=== PATIENT | male | born 1960 | race Caucasian/White ===

== ENCOUNTER 2018-02-11 05:23 | Inpatient (IN) | payer OTHER ==
[2018-02-10 12:17] LABS: ADD MAN DIFF? NO
[2018-02-10 12:18] LABS: WHITE BLOOD COUNT 8.2 10^3/ul (4.8-10.8)
[2018-02-10 12:18] LABS: BASOPHILS % 0.5 % (0.0-2.0); EOSINOPHILS # 0.2 10^3/ul (0.0-0.5); EOSINOPHILS % 2.2 % (0.0-7.0); HEMATOCRIT 43.4 % (42.0-52.0); HEMOGLOBIN 15.2 g/dl (14.0-18.0); LYMPHOCYTES # 2.1 10^3/ul (0.8-2.9); MEAN CORPUSCULAR HEMOGLOBIN 30.5 pg (29.0-33.0); MEAN PLATELET VOLUME 10.7 fl (7.4-10.4); MONOCYTE # 0.5 10^3/ul (0.3-0.9); MONOCYTES % 5.9 % (0.0-11.0); NEUTROPHIL # 5.4 10^3/ul (1.6-7.5); PLATELET COUNT 266 10^3/UL (140-415); RED BLOOD COUNT 4.99 10^6/ul (4.70-6.10); RED CELL DISTRIBUTION WIDTH 13.1 % (11.5-14.5)
[2018-02-10 12:35] LABS: ANION GAP 10 (5-13); BLOOD UREA NITROGEN 11 mg/dl (7-20); CALCIUM 9.1 mg/dl (8.4-10.2); CARBON DIOXIDE 26 mmol/L (21-31); CHLORIDE 103 mmol/L (97-110); CREATININE 0.52 mg/dl (0.61-1.24); Estimated GFR > 60 mL/min (>60); GLUCOSE 217 mg/dl (70-220); POTASSIUM 4.4 mmol/L (3.5-5.1); SODIUM 139 mmol/L (135-144)
[2018-02-10 12:38] LABS: INR 1.05; PARTIAL THROMBOPLASTIN TIME 28.1 Sec (23.0-35.0); PROTIME 13.8 Sec (11.9-14.9); PT RATIO 1.1
[2018-02-11] MEDS ORDERED: EPINEPHrine 4 MG in DEXTROSE 5% 246 ML IV (06:00)
[2018-02-11] MEDS ORDERED: INSULIN HUMAN REGULAR 100 UNIT in SOD CHLORIDE 0.9% 99 ML IV (06:00)
[2018-02-11] MEDS ORDERED: PHENYLephrine 20MG IN 250 ML 250 ML IV (06:00)
[2018-02-11] MEDS ORDERED: INSULIN REGULAR, HUMAN 100 UNIT/1 ML 3ML VIAL (07:00)
[2018-02-11] MEDS ORDERED: DOPamine-D5W 1.6 MG/ML 250 ML (07:00)
[2018-02-11] MEDS ORDERED: NITROGLYCERIN 50 MG/D5W 250 ML BTL (07:00)
[2018-02-11] MEDS ORDERED: MIDAZOLAM 5 ML ×2 (07:37→09:18)
[2018-02-11] MEDS ORDERED: PHENYLephrine (100 MCG/ML) 5ML SYG (07:39)
[2018-02-11] MEDS ORDERED: PHENYLephrine 10 MG INJ ×2 (07:39→08:37)
[2018-02-11] MEDS ORDERED: MAGNESIUM SULFATE (MG) 50% 10 ML INJ (08:37)
[2018-02-11] MEDS ORDERED: HEPARIN 1000 UNITS/ML 10 ML INJ ×2 (08:37→09:12)
[2018-02-11] MEDS ORDERED: MANNITOL 20% 250 ML IV (08:37)
[2018-02-11] MEDS ORDERED: CA CHLORIDE 10% 10 ML SYRINGE (08:37)
[2018-02-11] MEDS ORDERED: NA BICARBONATE 8.4% 50 ML SYG (08:37)
[2018-02-11] MEDS ORDERED: ALBUMIN HUMAN 25% 200 ML (08:37)
[2018-02-11] MEDS ORDERED: LIDOCAINE 100 MG SYRINGE (08:37)
[2018-02-11] MEDS ORDERED: AMINOCAPROIC ACID 5 GM INJ ×4 (08:37→10:21)
[2018-02-11] MEDS ORDERED: POTASSIUM CHLORIDE 40 MEQ INJ (08:37)
[2018-02-11] MEDS ORDERED: CEFAZOLIN 1 GM INJ ×2 (08:47→10:19)
[2018-02-11] MEDS: HEPARIN 1000 UNITS/ML 10 ML INJ (09:13)
[2018-02-11] MEDS: VANCOMYCIN 1 GM INJ (09:14)
[2018-02-11] MEDS ORDERED: PROTAMINE 250 MG INJ (10:25)
[2018-02-11 11:10] LABS: TYPE AND SCREEN 1
[2018-02-11 11:10] LABS: IMMEDIATE SPIN CROSSMATCH 1 6
[2018-02-11] MEDS ORDERED: FUROSEMIDE 20 MG INJ ×2 (11:42→11:59)
[2018-02-11] MEDS ORDERED: ROCURONIUM 50 MG INJ (12:28)
[2018-02-11] MEDS ORDERED: ETOMIDATE 20 MG INJ (12:28)
[2018-02-11] MEDS ORDERED: niCARdipine-NS 0.1MG/ML DRIP 200 ML (13:10)
[2018-02-11] MEDS ORDERED: morphine 4 MG/ML VIAL (13:12)
[2018-02-11] MEDS ORDERED: ALBUMIN HUMAN 5% 250 ML (13:15)
[2018-02-11] MEDS: niCARdipine 25 MG in SOD CHLORIDE 0.9% 250 ML IV ×3 (13:18→22:59)
[2018-02-11] MEDS ORDERED: DOPamine-D5W 1.6 MG/ML 250 ML IV (13:30)
[2018-02-11] MEDS ORDERED: morphine (1 MG/ML) 10ML SYRINGE IV ×2 (13:30)
[2018-02-11] MEDS ORDERED: NITROGLYCERIN 50 MG/D5W (PMX) 250 ML IV (13:30)
[2018-02-11] MEDS ORDERED: MEPERIDINE 25 MG INJ IV (13:30)
[2018-02-11] MEDS ORDERED: ONDANSETRON 4 MG INJ IV ×2 (13:30→14:00)
[2018-02-11] MEDS ORDERED: MIDAZOLAM 1 MG/ML 2 ML INJ IV (13:30)
[2018-02-11] MEDS ORDERED: DIPHENHYDRAMINE 50 MG INJ IV (13:30)
[2018-02-11] MEDS: morphine 4 MG/ML VIAL IV (13:49)
[2018-02-11] MEDS: ALBUMIN HUMAN 5% 250 ML IV ×2 (13:50→20:35)
[2018-02-11 13:57] LABS: ADD MAN DIFF? NO
[2018-02-11 13:58] LABS: BASOPHIL # 0.1 10^3/ul (0.0-0.1); BASOPHILS % 0.4 % (0.0-2.0); EOSINOPHILS # 0.1 10^3/ul (0.0-0.5); EOSINOPHILS % 0.7 % (0.0-7.0); HEMATOCRIT 31.4 % (42.0-52.0); HEMOGLOBIN 11.1 g/dl (14.0-18.0); LYMPHOCYTES # 2.6 10^3/ul (0.8-2.9); LYMPHOCYTES % 15.8 % (15.0-51.0); MEAN CORPUSCULAR HEMOGLOBIN 31.1 pg (29.0-33.0); MEAN CORPUSCULAR HGB CONC 35.4 g/dl (32.0-37.0); MEAN PLATELET VOLUME 9.9 fl (7.4-10.4); MONOCYTE # 1.1 10^3/ul (0.3-0.9); MONOCYTES % 6.6 % (0.0-11.0); NEUTROPHIL # 12.3 10^3/ul (1.6-7.5); NEUTROPHILS % 75.9 % (39.0-77.0); PLATELET COUNT 168 10^3/UL (140-415); RED BLOOD COUNT 3.57 10^6/ul (4.70-6.10)
[2018-02-11 13:58] LABS: WHITE BLOOD COUNT 16.3 10^3/ul (4.8-10.8)
[2018-02-11] MEDS ORDERED: MAGNESIUM SULFATE 1 GM/D5W 100 ML IVPB (14:00)
[2018-02-11] MEDS ORDERED: ACETAMINOPHEN 650 MG SUPP PR (14:00)
[2018-02-11] MEDS ORDERED: HYDROmorphONE 0.5 MG/0.5 ML SYG IV (14:00)
[2018-02-11 14:09] LABS: AADO2 Arterial 279.8 mmHg (7.0-24.0); Arterial Base Excess -4.6 mmol/L (-3.0-3); Arterial Blood Gas Oxygen Sat 98.8 mmHG (95.0-98.0); Arterial COHb 0.4 % (0.0-3.0); Arterial Fraction of Oxyhgb 97.9 % (93.0-99.0); Arterial HCO3 20.9 mmol/L (22.0-26.0); Arterial MetHb 0.5 % (0.0-1.5); MODE VENT - AC; Site A-Line
[2018-02-11 14:12] LABS: MODE VENT - AC; MetHgb Mixed Venous 0.4 %; Mixed Venous COHb 0.6 %; Mixed Venous Fraction OxyHgb 86.8 %; Mixed Venous Oxygen Sat 87.7 mmHG (65.0-75.0); Mixed Venous Total Hemglobin 12.1 g/dl; Sample Type BLMV; Site OTHER
[2018-02-11 14:19] LABS: INR 1.46; PT RATIO 1.4
[2018-02-11 14:20] LABS: PARTIAL THROMBOPLASTIN TIME 29.7 Sec (23.0-35.0)
[2018-02-11 14:21] LABS: ANION GAP 12 (5-13); BLOOD UREA NITROGEN 11 mg/dl (7-20); CARBON DIOXIDE 27 mmol/L (21-31); CHLORIDE 108 mmol/L (97-110); CREATININE 0.69 mg/dl (0.61-1.24); Estimated GFR > 60 mL/min (>60); GLUCOSE 149 mg/dl (70-220); MAGNESIUM 2.8 mg/dl (1.7-2.5); SODIUM 147 mmol/L (135-144)
[2018-02-11] MEDS: POTASSIUM CHLORIDE 40 MEQ in DEXTROSE 5%-0.225% NACL 1,000 ML IV (14:26)
[2018-02-11 14:27] LABS: POTASSIUM 2.8 mmol/L (3.5-5.1)
[2018-02-11] MEDS: CEFAZOLIN 1 GM/50 ML (PMX) 50 ML IVPB ×2 (14:32→21:32)
[2018-02-11] MEDS: POTASSIUM CHLORIDE 50 ML IVPB ×7 (14:34→23:43)
[2018-02-11] MEDS: HYDROmorphONE 0.5 MG/0.5 ML SYG IV ×5 (15:44→22:05)
[2018-02-11] MEDS ORDERED: DEXTROSE 50% 50 ML SYRINGE IV ×2 (16:00)
[2018-02-11] MEDS: ACCU-CHEK XX ×8 (16:25→23:38)
[2018-02-11] MEDS: INSULIN HUMAN REGULAR 100 UNIT in SOD CHLORIDE 0.9% 99 ML IV ×5 (16:25→22:04)
[2018-02-11 19:01] LABS: POTASSIUM 3.5 mmol/L (3.5-5.1)
[2018-02-11] MEDS: FAMOTIDINE 20 MG INJ IV (19:47)
[2018-02-11 20:06] LABS: AADO2 Arterial 131.8 mmHg (7.0-24.0); Arterial Blood Gas Oxygen Sat 97.6 mmHG (95.0-98.0); Arterial COHb 0.1 % (0.0-3.0); Arterial HCO3 20.5 mmol/L (22.0-26.0); Arterial MetHb 0.5 % (0.0-1.5); Arterial Total Hemglobin 11.6 g/dl (12.0-18.0); Arterial pCO2 35.3 mmhg (35-45); Blood Gas PS 10; MODE VENT - CPAP; Site A-Line
[2018-02-11 23:23] LABS: POTASSIUM 4.4 mmol/L (3.5-5.1)
[2018-02-11 23:27] LABS: MAGNESIUM 2.1 mg/dl (1.7-2.5)
[2018-02-12] MEDS: INSULIN HUMAN REGULAR 100 UNIT in SOD CHLORIDE 0.9% 99 ML IV ×3 (00:23→02:09)
[2018-02-12] MEDS: HYDROmorphONE 0.5 MG/0.5 ML SYG IV ×4 (00:26→10:38)
[2018-02-12] MEDS: ACCU-CHEK XX ×24 (01:26→23:00)
[2018-02-12] MEDS: OXYCODONE/ACETAMINOPHEN (5/325) TAB PO ×4 (01:30→17:31)
[2018-02-12 02:13] LABS: POTASSIUM 4.9 mmol/L (3.5-5.1)
[2018-02-12 05:18] LABS: ADD MAN DIFF? NO
[2018-02-12 05:21] LABS: ABNORMAL IP MESSAGE 1; BASOPHILS % 0.2 % (0.0-2.0); HEMATOCRIT 29.7 % (42.0-52.0); HEMOGLOBIN 10.1 g/dl (14.0-18.0); LYMPHOCYTES # 0.6 10^3/ul (0.8-2.9); LYMPHOCYTES % 5.1 % (15.0-51.0); MEAN CORPUSCULAR HEMOGLOBIN 30.4 pg (29.0-33.0); MEAN CORPUSCULAR VOLUME 89.5 fl (82.0-101.0); MEAN PLATELET VOLUME 11.6 fl (7.4-10.4); MONOCYTE # 0.8 10^3/ul (0.3-0.9); MONOCYTES % 7.3 % (0.0-11.0); NEUTROPHIL # 9.9 10^3/ul (1.6-7.5); NEUTROPHILS % 86.9 % (39.0-77.0); PLATELET COUNT 140 10^3/UL (140-415); POSITIVE DIFF @See below; RED BLOOD COUNT 3.32 10^6/ul (4.70-6.10); RED CELL DISTRIBUTION WIDTH 13.7 % (11.5-14.5)
[2018-02-12 05:21] LABS: WHITE BLOOD COUNT 11.4 10^3/ul (4.8-10.8)
[2018-02-12] MEDS: niCARdipine 25 MG in SOD CHLORIDE 0.9% 250 ML IV ×2 (05:21→11:21)
[2018-02-12 05:28] LABS: Arterial Base Excess -4.8 mmol/L (-3.0-3); Arterial Blood Gas Oxygen Sat 94.2 mmHG (95.0-98.0); Arterial COHb 0.3 % (0.0-3.0); Arterial Fraction of Oxyhgb 93.6 % (93.0-99.0); Arterial HCO3 18.4 mmol/L (22.0-26.0); Arterial MetHb 0.3 % (0.0-1.5); Arterial Total Hemglobin 10.4 g/dl (12.0-18.0); Arterial pCO2 28.1 mmhg (35-45); MODE NASAL CANNULA; Site A-Line
[2018-02-12] MEDS: CEFAZOLIN 1 GM/50 ML (PMX) 50 ML IVPB (05:33)
[2018-02-12 05:38] LABS: POTASSIUM 4.5 mmol/L (3.5-5.1)
[2018-02-12 05:43] LABS: INR 1.27; PROTIME 16.1 Sec (11.9-14.9); PT RATIO 1.3
[2018-02-12 05:44] LABS: PARTIAL THROMBOPLASTIN TIME 33.4 Sec (23.0-35.0)
[2018-02-12 05:46] LABS: ANION GAP 9 (5-13); BLOOD UREA NITROGEN 14 mg/dl (7-20); CALCIUM 8.9 mg/dl (8.4-10.2); CARBON DIOXIDE 25 mmol/L (21-31); CHLORIDE 111 mmol/L (97-110); CREATININE 0.64 mg/dl (0.61-1.24); Estimated GFR > 60 mL/min (>60); GLUCOSE 138 mg/dl (70-220); POTASSIUM 4.7 mmol/L (3.5-5.1); SODIUM 145 mmol/L (135-144)
[2018-02-12] MEDS: POTASSIUM CHLORIDE 40 MEQ in DEXTROSE 5%-0.225% NACL 1,000 ML IV (06:01)
[2018-02-12] MEDS: ACETAMINOPHEN 325 MG TAB PO (07:04)
[2018-02-12] MEDS: FAMOTIDINE 20 MG INJ IV ×2 (07:58→20:36)
[2018-02-12] MEDS: ASPIRIN 325 MG TAB PO (08:19)
[2018-02-12] MEDS ORDERED: FUROSEMIDE 20 MG INJ IV (08:30)
[2018-02-12] MEDS: LISINOPRIL 5 MG TAB PO ×2 (09:03→21:35)
[2018-02-12] MEDS: FUROSEMIDE 20 MG INJ IV ×2 (09:03→22:35)
[2018-02-12 18:52] LABS: HEMATOCRIT 32.4 % (42.0-52.0)
[2018-02-12 19:06] LABS: POTASSIUM 4.4 mmol/L (3.5-5.1)
[2018-02-12] MEDS: ATORVASTATIN 80 MG TAB PO (20:36)
[2018-02-13] MEDS: ACCU-CHEK XX ×11 (00:09→10:00)
[2018-02-13] MEDS: OXYCODONE/ACETAMINOPHEN (5/325) TAB PO ×3 (01:56→22:14)
[2018-02-13] MEDS: ACETAMINOPHEN 325 MG TAB PO ×2 (03:35→13:57)
[2018-02-13] MEDS: INSULIN HUMAN REGULAR 100 UNIT in SOD CHLORIDE 0.9% 99 ML IV (05:05)
[2018-02-13 05:29] LABS: ADD MAN DIFF? NO
[2018-02-13 05:31] LABS: BASOPHIL # 0.1 10^3/ul (0.0-0.1); BASOPHILS % 0.3 % (0.0-2.0); EOSINOPHILS % 0.1 % (0.0-7.0); HEMOGLOBIN 10.8 g/dl (14.0-18.0); LYMPHOCYTES # 1.4 10^3/ul (0.8-2.9); MEAN CORPUSCULAR HEMOGLOBIN 29.8 pg (29.0-33.0); MEAN CORPUSCULAR HGB CONC 32.7 g/dl (32.0-37.0); MEAN CORPUSCULAR VOLUME 91.2 fl (82.0-101.0); MEAN PLATELET VOLUME 11.5 fl (7.4-10.4); MONOCYTES % 6.7 % (0.0-11.0); NEUTROPHIL # 12.8 10^3/ul (1.6-7.5); NEUTROPHILS % 83.3 % (39.0-77.0); PLATELET COUNT 150 10^3/UL (140-415); RED BLOOD COUNT 3.62 10^6/ul (4.70-6.10); RED CELL DISTRIBUTION WIDTH 13.8 % (11.5-14.5)
[2018-02-13 05:31] LABS: WHITE BLOOD COUNT 15.3 10^3/ul (4.8-10.8)
[2018-02-13 05:56] LABS: ALANINE AMINOTRANSFERASE 24 IU/L (13-69); ALBUMIN 4.1 g/dl (3.3-4.9); ALBUMIN/GLOBULIN RATIO 1.64; ALKALINE PHOSPHATASE 56 IU/L (42-121); ANION GAP 10 (5-13); ASPARTATE AMINO TRANSFERASE 35 IU/L (15-46); BLOOD UREA NITROGEN 20 mg/dl (7-20); CALCIUM 9.2 mg/dl (8.4-10.2); CARBON DIOXIDE 27 mmol/L (21-31); CHLORIDE 106 mmol/L (97-110); CHOL/HDL RATIO 2.5 RATIO; CHOLESTEROL 91 mg/dl (100-200); CREATININE 0.64 mg/dl (0.61-1.24); Estimated GFR > 60 mL/min (>60); GLUCOSE 111 mg/dl (70-220); HDL CHOLESTEROL 36 mg/dl (28-71); LDL CHOLESTEROL,CALCULATED 40 mg/dl; MAGNESIUM 2.2 mg/dl (1.7-2.5); POTASSIUM 4.1 mmol/L (3.5-5.1); SODIUM 143 mmol/L (135-144); TOTAL PROTEIN 6.6 g/dl (6.1-8.1); TRIGLYCERIDES 75 mg/dl (0-149)
[2018-02-13 06:03] LABS: B-TYPE NATRIURETIC PEPTIDE 1770 PG/ML (0-125)
[2018-02-13 06:25] LABS: THYROID STIMULATING HORMONE 0.968 MIU/L (0.465-4.680)
[2018-02-13 06:44] LABS: FREE T4 (FREE THYROXINE) 1.31 ng/dl (0.64-1.79)
[2018-02-13 07:37] LABS: HEMOGLOBIN A1C 7.9 % (0-5.9)
[2018-02-13] MEDS: FAMOTIDINE 20 MG INJ IV (08:22)
[2018-02-13] MEDS: CLOPIDOGREL 75 MG TAB PO (08:22)
[2018-02-13] MEDS: ASPIRIN 325 MG TAB PO (08:22)
[2018-02-13] MEDS: LISINOPRIL 5 MG TAB PO ×2 (08:23→20:45)
[2018-02-13] MEDS ORDERED: GLUCOSE GEL 15 GRAM TUBE PO ×2 (13:00)
[2018-02-13] MEDS ORDERED: GLUCAGON 1 MG INJ IM (13:00)
[2018-02-13] MEDS ORDERED: DEXTROSE 50% 50 ML SYRINGE IV ×2 (13:00)
[2018-02-13] MEDS ORDERED: GLUCOSE GEL 15 GRAM TUBE BUCCAL (13:00)
[2018-02-13] MEDS: FUROSEMIDE 20 MG INJ IV (15:15)
[2018-02-13] MEDS: INSULIN ASPART [NOVOLOG] 3 ML PEN SC ×4 (17:14→20:45)
[2018-02-13] MEDS: ATORVASTATIN 80 MG TAB PO (20:45)
[2018-02-13] MEDS: FAMOTIDINE 20 MG TAB PO (20:45)
[2018-02-13] MEDS: INSULIN GLARGINE [LANTus] (100 UNITS/ML) SYG SC (20:47)
[2018-02-14] MEDS: ACCU-CHEK XX (02:00)
[2018-02-14] MEDS: OXYCODONE/ACETAMINOPHEN (5/325) TAB PO ×4 (05:28→20:55)
[2018-02-14 05:32] LABS: ADD MAN DIFF? NO
[2018-02-14 05:35] LABS: BASOPHILS % 0.3 % (0.0-2.0); EOSINOPHILS # 0.2 10^3/ul (0.0-0.5); EOSINOPHILS % 1.2 % (0.0-7.0); HEMATOCRIT 32.6 % (42.0-52.0); LYMPHOCYTES % 15.3 % (15.0-51.0); MEAN CORPUSCULAR HGB CONC 33.7 g/dl (32.0-37.0); MEAN CORPUSCULAR VOLUME 88.8 fl (82.0-101.0); MEAN PLATELET VOLUME 11.5 fl (7.4-10.4); MONOCYTE # 0.9 10^3/ul (0.3-0.9); MONOCYTES % 6.7 % (0.0-11.0); NEUTROPHIL # 9.9 10^3/ul (1.6-7.5); PLATELET COUNT 154 10^3/UL (140-415); RED BLOOD COUNT 3.67 10^6/ul (4.70-6.10); RED CELL DISTRIBUTION WIDTH 13.2 % (11.5-14.5)
[2018-02-14 06:08] LABS: ANION GAP 8 (5-13); BLOOD UREA NITROGEN 22 mg/dl (7-20); CALCIUM 8.9 mg/dl (8.4-10.2); CARBON DIOXIDE 26 mmol/L (21-31); CHLORIDE 107 mmol/L (97-110); CREATININE 0.59 mg/dl (0.61-1.24); Estimated GFR > 60 mL/min (>60); GLUCOSE 132 mg/dl (70-220); POTASSIUM 4.1 mmol/L (3.5-5.1); SODIUM 141 mmol/L (135-144)
[2018-02-14] MEDS: INSULIN ASPART [NOVOLOG] 3 ML PEN SC ×7 (07:35→20:52)
[2018-02-14] MEDS: CLOPIDOGREL 75 MG TAB PO (08:19)
[2018-02-14] MEDS: ASPIRIN 81 MG TAB PO (08:19)
[2018-02-14] MEDS: FAMOTIDINE 20 MG TAB PO ×2 (08:19→20:55)
[2018-02-14] MEDS: LISINOPRIL 5 MG TAB PO ×2 (08:19→20:54)
[2018-02-14] MEDS: ATORVASTATIN 80 MG TAB PO (20:54)
[2018-02-14] MEDS: INSULIN GLARGINE [LANTus] (100 UNITS/ML) SYG SC (20:58)
[2018-02-15] MEDS: ACCU-CHEK XX (02:00)
[2018-02-15] MEDS: OXYCODONE/ACETAMINOPHEN (5/325) TAB PO ×4 (02:23→17:14)
[2018-02-15 05:15] LABS: ADD MAN DIFF? NO
[2018-02-15 05:22] LABS: WHITE BLOOD COUNT 9.8 10^3/ul (4.8-10.8)
[2018-02-15 05:22] LABS: BASOPHILS % 0.3 % (0.0-2.0); EOSINOPHILS # 0.2 10^3/ul (0.0-0.5); EOSINOPHILS % 2.2 % (0.0-7.0); HEMATOCRIT 32.3 % (42.0-52.0); HEMOGLOBIN 11.2 g/dl (14.0-18.0); LYMPHOCYTES # 1.2 10^3/ul (0.8-2.9); LYMPHOCYTES % 11.9 % (15.0-51.0); MEAN CORPUSCULAR HEMOGLOBIN 30.6 pg (29.0-33.0); MEAN CORPUSCULAR HGB CONC 34.7 g/dl (32.0-37.0); MEAN CORPUSCULAR VOLUME 88.3 fl (82.0-101.0); MEAN PLATELET VOLUME 11.2 fl (7.4-10.4); MONOCYTE # 0.7 10^3/ul (0.3-0.9); MONOCYTES % 6.8 % (0.0-11.0); NEUTROPHIL # 7.7 10^3/ul (1.6-7.5); NEUTROPHILS % 78.4 % (39.0-77.0); PLATELET COUNT 186 10^3/UL (140-415); RED BLOOD COUNT 3.66 10^6/ul (4.70-6.10); RED CELL DISTRIBUTION WIDTH 12.8 % (11.5-14.5)
[2018-02-15 06:14] LABS: ANION GAP 9 (5-13); BLOOD UREA NITROGEN 17 mg/dl (7-20); CALCIUM 8.9 mg/dl (8.4-10.2); CARBON DIOXIDE 25 mmol/L (21-31); CHLORIDE 102 mmol/L (97-110); Estimated GFR > 60 mL/min (>60); GLUCOSE 188 mg/dl (70-220); POTASSIUM 3.9 mmol/L (3.5-5.1); SODIUM 136 mmol/L (135-144)
[2018-02-15] MEDS: INSULIN ASPART [NOVOLOG] 3 ML PEN SC ×9 (07:35→20:45)
[2018-02-15] MEDS: FAMOTIDINE 20 MG TAB PO ×2 (08:03→20:43)
[2018-02-15] MEDS: ASPIRIN 81 MG TAB PO (09:03)
[2018-02-15] MEDS: CLOPIDOGREL 75 MG TAB PO (09:03)
[2018-02-15] MEDS: LISINOPRIL 5 MG TAB PO ×2 (09:04→20:45)
[2018-02-15] MEDS: ATORVASTATIN 80 MG TAB PO (20:44)
[2018-02-15] MEDS: INSULIN GLARGINE [LANTus] (100 UNITS/ML) SYG SC (20:51)
[2018-02-16] MEDS: OXYCODONE/ACETAMINOPHEN (5/325) TAB PO ×3 (00:37→17:52)
[2018-02-16] MEDS: ACCU-CHEK XX (02:00)
[2018-02-16 05:39] LABS: ADD MAN DIFF? NO
[2018-02-16 05:41] LABS: WHITE BLOOD COUNT 7.6 10^3/ul (4.8-10.8)
[2018-02-16 05:41] LABS: BASOPHILS % 0.5 % (0.0-2.0); EOSINOPHILS # 0.2 10^3/ul (0.0-0.5); EOSINOPHILS % 2.9 % (0.0-7.0); HEMOGLOBIN 11.4 g/dl (14.0-18.0); LYMPHOCYTES # 1.8 10^3/ul (0.8-2.9); LYMPHOCYTES % 24.1 % (15.0-51.0); MEAN CORPUSCULAR HEMOGLOBIN 30.3 pg (29.0-33.0); MEAN CORPUSCULAR HGB CONC 34.5 g/dl (32.0-37.0); MEAN CORPUSCULAR VOLUME 87.8 fl (82.0-101.0); MEAN PLATELET VOLUME 10.5 fl (7.4-10.4); MONOCYTE # 0.7 10^3/ul (0.3-0.9); MONOCYTES % 9.7 % (0.0-11.0); NEUTROPHIL # 4.7 10^3/ul (1.6-7.5); NEUTROPHILS % 62.4 % (39.0-77.0); PLATELET COUNT 233 10^3/UL (140-415); RED BLOOD COUNT 3.76 10^6/ul (4.70-6.10); RED CELL DISTRIBUTION WIDTH 12.6 % (11.5-14.5)
[2018-02-16 06:20] LABS: ANION GAP 9 (5-13); BLOOD UREA NITROGEN 12 mg/dl (7-20); CARBON DIOXIDE 25 mmol/L (21-31); CHLORIDE 108 mmol/L (97-110); Estimated GFR > 60 mL/min (>60); GLUCOSE 110 mg/dl (70-220); POTASSIUM 3.8 mmol/L (3.5-5.1); SODIUM 142 mmol/L (135-144)
[2018-02-16] MEDS: INSULIN ASPART [NOVOLOG] 3 ML PEN SC ×7 (07:56→21:00)
[2018-02-16] MEDS: FAMOTIDINE 20 MG TAB PO ×2 (08:00→21:10)
[2018-02-16] MEDS: LISINOPRIL 5 MG TAB PO ×2 (08:00→21:11)
[2018-02-16] MEDS: ASPIRIN 81 MG TAB PO (08:00)
[2018-02-16] MEDS: CLOPIDOGREL 75 MG TAB PO (08:00)
[2018-02-16] MEDS: ATORVASTATIN 80 MG TAB PO (21:10)
[2018-02-16] MEDS: INSULIN GLARGINE [LANTus] (100 UNITS/ML) SYG SC (21:19)
[2018-02-17] MEDS: OXYCODONE/ACETAMINOPHEN (5/325) TAB PO ×2 (01:01→12:49)
[2018-02-17] MEDS: ACCU-CHEK XX (02:00)
[2018-02-17 05:37] LABS: ADD MAN DIFF? NO
[2018-02-17 05:44] LABS: BASOPHILS % 0.4 % (0.0-2.0); EOSINOPHILS # 0.2 10^3/ul (0.0-0.5); EOSINOPHILS % 3.1 % (0.0-7.0); HEMATOCRIT 32.2 % (42.0-52.0); HEMOGLOBIN 11.2 g/dl (14.0-18.0); LYMPHOCYTES # 1.9 10^3/ul (0.8-2.9); LYMPHOCYTES % 24.3 % (15.0-51.0); MEAN CORPUSCULAR HEMOGLOBIN 30.2 pg (29.0-33.0); MEAN CORPUSCULAR HGB CONC 34.8 g/dl (32.0-37.0); MEAN CORPUSCULAR VOLUME 86.8 fl (82.0-101.0); MEAN PLATELET VOLUME 10.1 fl (7.4-10.4); MONOCYTE # 0.7 10^3/ul (0.3-0.9); MONOCYTES % 9.3 % (0.0-11.0); NEUTROPHIL # 4.8 10^3/ul (1.6-7.5); NEUTROPHILS % 62.2 % (39.0-77.0); PLATELET COUNT 252 10^3/UL (140-415); RED BLOOD COUNT 3.71 10^6/ul (4.70-6.10)
[2018-02-17 05:44] LABS: WHITE BLOOD COUNT 7.7 10^3/ul (4.8-10.8)
[2018-02-17 05:53] LABS: ANION GAP 10 (5-13); BLOOD UREA NITROGEN 12 mg/dl (7-20); CALCIUM 8.9 mg/dl (8.4-10.2); CARBON DIOXIDE 25 mmol/L (21-31); CHLORIDE 108 mmol/L (97-110); Estimated GFR > 60 mL/min (>60); GLUCOSE 116 mg/dl (70-220); POTASSIUM 4.1 mmol/L (3.5-5.1); SODIUM 143 mmol/L (135-144)
[2018-02-17] MEDS: FAMOTIDINE 20 MG TAB PO (07:32)
[2018-02-17] MEDS: INSULIN ASPART [NOVOLOG] 3 ML PEN SC ×6 (07:34→17:38)
[2018-02-17] MEDS: CLOPIDOGREL 75 MG TAB PO (08:43)
[2018-02-17] MEDS: ASPIRIN 81 MG TAB PO (08:43)
[2018-02-17] MEDS: LISINOPRIL 5 MG TAB PO (08:43)
== END 2018-02-17 17:59 | disposition home health service (06) | DRG 220 ==
LOC: REC 05:23 → 6WM 02-15 17:37 → ICU 12:57
PROC: 02RF08Z Replacement of Aortic Valve with Zooplastic Tissue, Open Approach (ICD-10-PCS; principal; 2018-02-11 07:30)
PROC: 5A1221Z Performance of Cardiac Output, Continuous (ICD-10-PCS; 2018-02-11 07:30)
PROC: 5A1223Z Performance of Cardiac Pacing, Continuous (ICD-10-PCS; 2018-02-11 07:30)
PROC: 30233K1 Transfusion of Nonautologous Frozen Plasma into Peripheral Vein, Percutaneous Approach (ICD-10-PCS; 2018-02-11 07:30)
PROC: 30233R1 Transfusion of Nonautologous Platelets into Peripheral Vein, Percutaneous Approach (ICD-10-PCS; 2018-02-11 07:30)
DX: I35.2 Nonrheumatic aortic (valve) stenosis with insufficiency (principal); D62 Acute posthemorrhagic anemia; I11.0 Hypertensive heart disease with heart failure; I50.9 Heart failure, unspecified; E11.9 Type 2 diabetes mellitus without complications; E78.5 Hyperlipidemia, unspecified; I25.10 Atherosclerotic heart disease of native coronary artery without angina pectoris; I25.5 Ischemic cardiomyopathy; I25.2 Old myocardial infarction; Z95.5 Presence of coronary angioplasty implant and graft; Z87.891 Personal history of nicotine dependence; Z79.84 Long term (current) use of oral hypoglycemic drugs; Z79.02 Long term (current) use of antithrombotics/antiplatelets; Z79.82 Long term (current) use of aspirin
CPT/HCPCS: 36430; 36592; 36600; 71045; 80048; 80053; 80061; 82803; 82962; 83036; 83735; 83880; 84132; 84439; 84443; 85014; 85025; 85610; 85730; 86644; 86850; 86900; 86901; 86920; 87081; 88304; 88311; 93005; 93312; 93325; 94002; 97116; 97162; 97167; 97530; 97535